=== PATIENT | male | born 1955 ===

== ENCOUNTER 2018-07-08 22:11 | Emergency (ER) | payer OTHER ==
[2018-07-08 22:18] VITALS: BMI 26.5
--- NOTE | 2018-07-08 23:03 | ED PDOC ---
Arrival/HPI - General Historian: Patient - History of Present Illness Narrative History of Present Illness (Text): 07/08/18 22:48 62yo male with pmhx of hypertension who present with complaint of left lower leg pain x one week s/p trauma. States he hit his left thigh against an object a week ago and has been taking Ibuprofen at home without relieve. states pain is on his lower leg. Denies chest pain, SOB, diaphoresis, nausea, vomiting, any other complaint. <Shayla Nash A - Last Filed: 07/09/18 00:43> <Mansoor Be - Last Filed: 07/10/18 11:31> - General Chief Complaint: Lower Extremity Problem/Injury Past Medical History - Provider Review Nursing Documentation Reviewed: Yes - Psychiatric Hx Substance Use: No - Anesthesia Hx Anesthesia: No <Shayla Nash A - Last Filed: 07/09/18 00:43> Family/Social History - Physician Review Nursing Documentation Reviewed: Yes Family/Social History: Unknown Family HX Smoking Status: Never Smoked Hx Alcohol Use: Yes Frequency of alcohol use: Socially Hx Substance Use: No <Shayla Nash A - Last Filed: 07/09/18 00:43> Allergies/Home Meds <Shayla Nash A - Last Filed: 07/09/18 00:43> <Mansoor Be - Last Filed: 07/10/18 11:31> Allergies/Adverse Reactions: Allergies No Known Allergies Allergy (Verified 07/08/18 22:18) Review of Systems - Physician Review All systems were reviewed & negative as marked: Yes - Review of Systems Constitutional: Normal Eyes: Normal ENT: Normal Respiratory: Normal Cardiovascular: Normal Gastrointestinal: Normal Genitourinary Male: Normal Musculoskeletal: Arthralgias (Left leg pain) Skin: Normal Neurological: Normal Endocrine: Normal Hemo/Lymphatic: Normal Psychiatric: Normal <Shayla Nash A - Last Filed: 07/09/18 00:43> Physical Exam Vital Signs Reviewed: Yes Vital Signs Temp Pulse Resp BP Pulse Ox 07/08/18 22:23 98.1 F 99 H 18 193/100 H 99 Temperature: Afebrile Blood Pressure: Normal Pulse: Regular Respiratory Rate: Normal Appearance: Positive for: Well-Appearing, Non-Toxic, Comfortable Pain Distress: None Mental Status: Positive for: Alert and Oriented X 3 - Systems Exam Head: Present: Atraumatic, Normocephalic Pupils: Present: PERRL Extroacular Muscles: Present: EOMI Conjunctiva: Present: Normal Mouth: Present: Moist Mucous Membranes Neck: Present: Normal Range of Motion Respiratory/Chest: Present: Clear to Auscultation, Good Air Exchange. No: Respiratory Distress, Accessory Muscle Use Cardiovascular: Present: Regular Rate and Rhythm, Normal S1, S2. No: Murmurs Abdomen: No: Tenderness, Distention, Peritoneal Signs Back: Present: Normal Inspection Upper Extremity: Present: Normal Inspection. No: Cyanosis, Edema Lower Extremity: Present: CALF TENDERNESS (LEft leg), NORMAL PULSES, Normal ROM, Tenderness (Left lower leg), Neurovascularly Intact. No: Edema, Cyanosis, Evan's Sign, Swelling, Erythema, Deformity, Temperature Abnormalties Neurological: Present: GCS=15, CN II-XII Intact, Speech Normal Skin: Present: Warm, Dry, Normal Color. No: Rashes Psychiatric: Present: Alert, Oriented x 3, Normal Insight, Normal Concentration <Diru,Happiness A - Last Filed: 07/09/18 00:43> Vital Signs Temp Pulse Resp BP Pulse Ox 07/09/18 00:17 98.0 F 88 17 141/81 98 07/09/18 00:16 88 17 141/81 98 07/08/18 22:23 98.1 F 99 H 18 193/100 H 99 <Mansoor Be - Last Filed: 07/10/18 11:31> Medical Decision Making ED Course and Treatment: 07/09/18 00:43 Pt in ED for stated history. He ambulated to ED. Tib/fib Doppler US of left leg Toradol 60mg On re evaluation his pain was controlled in ED. Left tib/fib xray - Negative Per US tech preliminary result was negative for DVT Result was DW the pt and he was DC home with a rx of Tramadol and was referred to his PMD. - RAD Interpretation Radiology Orders: 07/08/18 22:45 TIBIA FIBULA LEFT [RAD] Stat DUPLEX LOWER EXTRM VEIN LEFT [US] Stat <Diru,Happiness A - Last Filed: 07/09/18 00:43> - RAD Interpretation Radiology Orders: 07/08/18 22:45 TIBIA FIBULA LEFT [RAD] Stat DUPLEX LOWER EXTRM VEIN LEFT [US] Stat - Medication Orders Current Medication Orders: Discontinued Medications Ketorolac Tromethamine (Toradol) 60 mg IM STAT STA Stop: 07/08/18 23:05 Last Admin: 07/09/18 00:01 Dose: 60 mg MAR Pain Assessment Document 07/09/18 00:01 IT (Rec: 07/09/18 00:01 IT [facility] [place]-ER-20) Pain Reassessment Is this a pain reassessment? No Sleep Is patient sleeping during reassessment? No Presence of Pain Presence of Pain Yes Pain Scale Used Protocol: PSCALES Pain Scale Used Numeric IM Administration Charges Document 07/09/18 00:01 IT (Rec: 07/09/18 00:01 IT [facility] [place]-ER-20) Injection Site MAR Injection Site Left Deltoid Charges for Administration # of IM Administrations 1 <Mansoor Be - Last Filed: 07/10/18 11:31> - PA / DEMONSTRATOR KNITTING / Resident Statement / has reviewed & agrees with the documentation as recorded. <Mansoor Be - Last Filed: 07/10/18 11:31> Disposition/Present on Arrival - Present on Arrival Any Indicators Present on Arrival: No History of DVT/PE: No History of Uncontrolled Diabetes: No Urinary Catheter: No History of Decub. Ulcer: No History Surgical Site Infection Following: None - Disposition Have Diagnosis and Disposition been Completed?: Yes Disposition Time: 23:55 Patient Plan: Discharge <Shayla Nash - Last Filed: 07/09/18 00:43> <Mansoor Be - Last Filed: 07/10/18 11:31> - Disposition Diagnosis: Leg pain Disposition: HOME/ ROUTINE Condition: STABLE Discharge Instructions (ExitCare): Muscle and Bone Pain (DC) Additional Instructions: Follow up with your doctor return to ED for any new symptoms Prescriptions: RX: traMADol [Ultram] 50 mg PO Q6 #7 tab Referrals: Estrella Camacho MD [Medical Doctor] - Follow up with primary Forms: [employer]XVISION ([place])
[2018-07-09 00:17] VITALS: BP 141/81; PULSE 88; RESP 17; O2SAT 98
[2018-07-09 00:18] VITALS: TEMP 98
--- NOTE | 2018-07-09 08:44 | US ---
PROCEDURE: Left lower extremity venous US HISTORY: Leg pain and swelling. Evaluate for DVT. PHYSICIAN(S): French Clemens MD. TECHNIQUE: Duplex sonography and color-flow Doppler with graded compression were used to evaluate the deep venous system of the left lower extremity. FINDINGS: The visualized deep venous system of the left lower extremity is sonographically normal and compressible. Normal wave forms and augmentation are seen. There is no sonographic evidence for deep venous thrombosis in the visualized segments of the left lower extremity. IMPRESSION: 1. No sonographic evidence for deep venous thrombosis in the visualized segments of the left lower extremity.
--- NOTE | 2018-07-09 09:57 | RAD ---
Date of service: 07/08/2018 PROCEDURE: Radiographs of the left tibia and fibula. HISTORY: leg pain COMPARISON: None available. TECHNIQUE: Frontal and lateral views obtained. FINDINGS: BONES: No fracture or destructive lesion. JOINT SPACES: Unremarkable. OTHER FINDINGS: None. IMPRESSION: Unremarkable radiographs of the left tibia and fibula.
== END 2018-07-09 00:19 | disposition home or self-care (01) ==
LOC: ED 22:11
DX: M79.605 Pain in left leg (principal)
CPT/HCPCS: 73590; 93971; 96372; 99284; J1885